=== PATIENT | male | born 1995 | race Caucasian/White ===

== ENCOUNTER 2016-11-12 16:40 | Inpatient (IN) | payer BC ==
--- NOTE | 2016-11-12 17:07 | EDPHY ---
H & P Smoking Status: Never smoked Time Seen by Provider: 11/12/16 16:48 HPI/ROS: CHIEF COMPLAINT: Depression HISTORY OF PRESENT ILLNESS: The patient is a 21-year-old male with a history of depression who presents emergency department with worsening symptoms. He states he has had worsening mood swings. He saw his psychiatrist Dr. Simon today. Dr. Simon called me prior to his arrival and stated that the patient was not on a hold but he wanted him evaluated. Patient initially stated he did not want to be evaluated. He told me to "fuck off" on numerous occasions. He subsequently told me that he was having worsening depression. He does have suicidal ideation. He did not state specific plan. He denies any ingestion or overdose today. He denies drugs or alcohol. REVIEW OF SYSTEMS: My complete review of systems is negative except as mentioned in the HPI. ( Anne Meier) Past Medical/Surgical History: Includes depression Past surgical history: Denies Social history: Denies (Anne Meier) Physical Exam: Vitals noted GENERAL: No acute distress, alert. HEENT: Eyes normal to inspection, normal pharynx, no signs of dehydration. NECK: No thyromegaly, no lymphadenopathy, supple. RESPIRATORY: Clear to auscultation bilaterally, no rales, rhonchi or wheezing. CVS: Regular rate and rhythm, no rubs, murmurs, or gallops. ABDOMEN: Soft, nontender, nondistended, no organomegaly. BACK: Normal to inspection, no CVA tenderness. SKIN: Normal color, no rash, warm, dry. No pallor. EXTREMITIES: No pedal edema, no calf tenderness, no Homans sign or cords, no joint swelling. NEURO/PSYCH: Alert and oriented x3, intermittently tearful, slightly angry normal motor sensory exam. No obvious cranial nerve deficit. (Anne Meier ) Constitutional: Initial Vital Signs Heart Rate 70 11/12/16 16:43 Respiratory Rate 16 11/12/16 16:43 Blood Pressure 120/49 L 11/12/16 16:43 O2 Sat (%) 97 11/12/16 16:43 O2 Delivery Mode Room Air Allergies/Adverse Reactions: No Known Allergies Allergy (Verified 11/12/16 16:43) Home Medications: Medication Instructions Recorded Latuda 11/13/16 buPROPion XL [Wellbutrin 150mg XL] 300 11/13/16 Medical Decision Making ED Course/Re-evaluation: In the emergency department I discussed the plan with the patient. I informed him that he was being placed on a hold the need to be evaluated by Psychiatric Services. The patient agreed. I subsequently contacted Dr. Simon on phone at [phone]. He agreed with the plan for placing the patient on a hold. Patient consented to laboratory studies. M1 Hold completed. Reviewed the patient's laboratory studies. His CBC and chemistry unremarkable. His aspirin and Tylenol were negative. His tox screen revealed positive THC and benzodiazepine. I discussed the case with Psychiatric Services. They recommend the patient be placed. The patient is aware the plan. Pt stable during stay. 2300: Pt signed out at change of shift to Dr. Ramirez (Anne Meier) 2300 care assumed by me from Dr. Meier pending placement. Patient has been accepted to [address] [place] [address] Roca. I have completed the EMTALA. (Nikko Ramirez) Differential Diagnosis: My differential includes but is not limited to depression, bipolar disorder, suicidal ideation, thyroid disease, drug abuse (Anne Meier) - Data Points Laboratory Results: Laboratory Results 11/12/16 17:34 11/12/16 17:34 Medications Given: Lurasidone HCl (Latuda) 40 mg PO DAILY@0800 GRIS Stop: 05/12/17 07:59 Last Admin: 11/12/16 23:03 Dose: 40 mg Discontinued Medications Lorazepam (Ativan) 2 mg PO EDNOW ONE Stop: 11/12/16 23:57 Last Admin: 11/13/16 00:34 Dose: 2 mg Departure - Departure Disposition: [facility] IP Clinical Impression: Depression Qualifiers: Depression Type: major depressive disorder Major depression recurrence: recurrent Active/Remission status: currently active Major depression episode severity: unspecified Qualified Code(s): F33.9 - Major depressive disorder, recurrent, unspecified Condition: Good
[2016-11-12 17:45] LABS: % IMMATURE GRANULYOCYTES 0.5 % (0.0-1.1); ABSOLUTE IMMATURE GRANULOCYTES 0.04 10^3/uL (0.00-0.10); ADD DIFF? NO; ADD MORPH? NO; ADD SCAN? NO; ATYPICAL LYMPHOCYTE FLAG 0 (0-99); FRAGMENT RBC FLAG 0 (0-99); HEMATOCRIT 47.7 % (40.0-51.0); HEMOGLOBIN 16.8 g/dL (13.7-17.5); LEFT SHIFT FLG 0 (0-99); LIPEMIA HEMOLYSIS FLAG 90 (0-99); MEAN CELL HEMOGLOBIN 31.4 pg (27.9-34.1); MEAN CELL HEMOGLOBIN CONCENTR. 35.2 g/dL (32.4-36.7); MEAN CELL VOLUME 89.2 fL (81.5-99.8); MEAN PLATELET VOLUME 10.3 fL (8.7-11.7); PLATELET CLUMPS FLAG 0 (0-99); PLATELET COUNT 283 10^3/uL (150-400); RED BLOOD CELL COUNT 5.35 10^6/uL (4.40-6.38); RED CELL DISTRIBUTION WIDTH 11.9 % (11.5-15.2)
[2016-11-12 18:14] LABS: ANION GAP 13 mEq/L (8-16); CARBON DIOXIDE 25 mEq/l (22-31); CHLORIDE 102 mEq/L (97-110); ETHANOL SERUM < 10 mg/dL (0-10); GLOMERULAR FILTRATION RATE > 60; GLUCOSE 83 mg/dL (70-100); POTASSIUM 4.1 mEq/L (3.5-5.2); SALICYLATE < 1.0 mg/dL (2.0-20.0); SODIUM 140 mEq/L (134-144)
[2016-11-12] MEDS: LURASIDONE HCL 20 MG TAB PO SCH (23:03)
[2016-11-13] MEDS: LORazepam 1 MG TAB PO ONE ×2 (00:19→00:34)
[2016-11-13 01:21] VITALS: BP 106/58; PULSE 79; RESP 16; TEMP 97.6; O2SAT 96
[2016-11-13] MEDS ORDERED: MAGNESIUM HYDROXIDE 30 ML UDCUP PO PRN (01:54)
[2016-11-13] MEDS ORDERED: NICOTINE POLACRILEX 2 MG GUM B PRN (01:54)
[2016-11-13] MEDS ORDERED: MAG HYDROX/AL HYDROX/SIMETH 30 ML UDCUP PO PRN (01:54)
[2016-11-13] MEDS ORDERED: ACETAMINOPHEN 325 MG TAB PO PRN (01:54)
[2016-11-13] MEDS ORDERED: OLANZapine 5 MG TAB PO PRN (01:55)
--- NOTE | 2016-11-13 14:30 | BCON ---
[f rep st] BEHAVIORAL HEALTH CONSULTATION INTERNAL MEDICINE CONSULTATION DATE OF CONSULTATION: 11/13/2016 REFERRING PHYSICIAN: Mary Roca MD REASON FOR REFERRAL: Medical clearance for inpatient behavioral health stay. HISTORY OF PRESENT ILLNESS: The patient came to the emergency department with worsening depression and suicidality. He was placed on an M1 hold, evaluated by the mental health team, and admitted for further psychiatric care. He currently is without any acute complaints. PAST MEDICAL HISTORY: 1. Depression and bipolar disorder. 2. Right knee injury from a skiing accident. PAST SURGICAL HISTORY: He denies history of any surgeries. MEDICATIONS: Most recently: 1. Lurasidone 40 mg p.o. daily. 2. Bupropion 300 mg p.o. daily. ALLERGIES: No known drug allergies. SOCIAL HISTORY: He lives with roommates in [facility]. He has worked as a ski patrol. He is a tobacco smoker. He has frequent alcohol use and frequent binges. He smokes marijuana. FAMILY HISTORY: A history of depression on his father's side. REVIEW OF SYSTEMS: He has no pain currently from his knee injury. He reports he is due for an MRI scan soon, and he has an outside doctor guiding the evaluation and management. Otherwise, he denies pain, cough, dyspnea, weight change, fevers, chills, palpitations, nausea, vomiting, constipation, diarrhea, dysuria or urinary frequency, skin rash, skin breakdown, joint pain, and joint swelling. Otherwise, 10-point review of systems is negative. PHYSICAL EXAMINATION: VITAL SIGNS: Blood pressure is 106/58, heart rate is 79 , respiratory rate is 16, oxygen saturation is 96% on room air, temperature is 36.4 degrees centigrade. His weight is 79.4 kg for a body mass index of 22.5. GENERAL: This is a well-nourished, well-developed man who appears his chronologic age, cooperative, and in no acute distress. HEENT: Extraocular movements are intact. Pupils are equal, round, and reactive to light. Mucous membranes are moist. Dentition is in good condition. NECK: Supple. HEART: Regular rate and rhythm with no murmurs, rubs, or gallops. LUNGS: Clear to auscultation bilaterally. ABDOMEN: Soft, nontender, and nondistended with normoactive bowel sounds. EXTREMITIES: No cyanosis, clubbing, or edema. NEUROLOGIC: Alert and oriented x3. Somewhat guarded and angry in his affect. Cranial nerves 2 through 12 are grossly intact. There is no focal weakness. Sensation is intact to light touch, and gait is within normal limits. LABORATORY STUDIES: Drawn in the emergency department: Hematology overall within normal limits. He had a slight relative decrement of eosinophils at 0.5 % of no clinical significance. Serum chemistry was completely within normal limits. Toxicology screen in the serum was negative for salicylates, acetaminophen, and ethyl alcohol, and the urine was non-negative for benzodiazepines and marijuana. ASSESSMENT AND RECOMMENDATIONS: 1. Mental health issues, pending further evaluation and management per Psychiatry and the mental health team. 2. Tobacco-dependence syndrome. He was advised to quit smoking. 3. Polysubstance abuse with alcohol-use disorder, marijuana-use disorder, and apparently benzodiazepine use without a prescription. He may benefit from specific substance abuse counseling. It may be worthwhile to observe for any signs or symptoms of alcohol or benzodiazepine withdrawal, though at present he is showing no such signs. I see no medical contraindications to this patient's continued stay on the inpatient behavioral health unit or to any psychiatric medications or procedures. Thank you very much for including me in the care of this patient, and please do not hesitate to contact me or the hospitalists service should there be need for further medical evaluation. /[id number]/MODL MTDD
[2016-11-13] MEDS: buPROPion XL 150 MG TAB PO SCH (15:22)
[2016-11-13] MEDS: LURASIDONE HCL 20 MG TAB PO SCH (17:38)
--- NOTE | 2016-11-13 18:12 | BAPA ---
[f rep st] ADMISSION PSYCHIATRIC ASSESSMENT DATE OF SERVICE: 11/13/2016 CHIEF COMPLAINT: "I am looking for relief from mood swings, anger and depression. Someone needs to tell me if this is the way it is always going to be. You've got to figure it out. I'm not here to work on it anymore." HISTORY OF PRESENT ILLNESS: This is a 21-year-old single man who presented to the ED seek ing treatment due to suicidal thoughts, rapid mood swings, and general irritability. The patient archer d been seen by his psychiatrist, Dr. Sorenson, on 11/12/2016 in the morning, who was in the process of setting the patient up with an appointment for IV ketamine infusion. The patient states that af ter leaving Dr. Sorenson's office, he went to his sister's house. She went to work at 2 p.m. on e day prior to admission. He decided to book a flight to [place]. He said that he was able to get his mother's credit card number and charged an approximately 2000 [address] plane ticket on her card. Lat er that day the patient drove to [place] to apple picker his guitar, which was being repaired. He said th at he started feeling guilty about what he had done. He said his mood changed and he had thoughts a bout driving his car into a tree. He felt that he was "at the end of my rope." He said, "If things don't get better for me, I'm going to kill myself." He said he has been having these rapid mood cy cles for the past 3 weeks, and told the [facility] forestry patrolman, "I've never felt so bad." The patient states that he called Dr. Sorenson and told him that he was on his way to the hospital. The [facility] evaluato r spoke with Dr. Sorenson, who agreed that the patient needed to be admitted to the hospital. He s aid that when he saw the patient earlier that day, he did not feel like the patient needed to be on a mental health hold and he was not concerned about his safety, but says that based upon what the juvenal fenton has reported, having thoughts about driving his car into a tree, Dr. Sorenson was worried abo ut him. The patient has no prior history of suicide attempts. Other than the thought about driving into the tree, he denied any intent or plan to act on those thoughts yesterday, but just felt that he needed to get some help and that he wanted to "figure things out." When this psychiatrist met wi th the patient on the behavioral health inpatient unit on , the patient was extremely irritab le, angry, hostile, frustrated, uncooperative. He told the MD to "fuck off," but continued to answ er some of the MD's questions. He said, "I can't take it anymore. I have done all the things that you guys have asked me to do. I have taken all the recommendations of my doctors. I found work. I have been getting exercise. I am more socially engaged. I follow up with my treatment. I take my medications, but I'm still not getting better." The patient states, "Someone needs to tell me if t his is the way it's always going to be, because I don't like it this way." The patient was very neg ative about his treatment. He said, "I've taken all the fucking psychiatric medications there are." When MD asked the patient if he felt that there were any periods of time since he started taking p sychiatric medications that he thought that they were helpful, he said, "No, not really." The patie nt was angry about his treatment. He said that his mother made him go to a residential treatment [facility] for his lena and senior year of high school. He says, "I feel like you are all just puppet doctors, and my mom is pulling the strings, and you are keeping information from me." The patient s aid that he is not willing to work on his treatment anymore because he has done everything that he f eels he needs to do. He says, "It's up to you guys. It's your job to figure out what's wrong and m jef me better." The patient states that there are lots of good things going on in his life, but he is not able to appreciate any of them. He says that he [place] 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 He says he likes his roommates, but he says that nothing in his life brings him any jorge l or satisfactio n. Mostly he says that he feels like he is frequently "irritable, angry, mad about everything." Th e patient says that things have been getting worse over the last 3-4 weeks. He says that he got ang ry and smashed his phone. He lost his job 2 days ago because he did not show up to work for 2 days. He says that he has had decreased interest in cooking and other activities that he used to previou sly enjoy. The patient said that he wanted his treating psychiatrist on the unit to contact his out patient psychiatrist, Dr. Sorenson, and "figure things out." The patient said that he also wanted the psychiatrist to talk to his mother, but he did not want to be present for the conversation lola selby, "She pisses me off." PAST PSYCHIATRIC HISTORY: The patient is currently being seen by Dr. Usman Sorenson, , who has been prescribing medications for him. But since the patient lives in [place], and Dr. Vijaya lam's office is here in [place], the patient does not see him all that often. He said sometimes nasra vázquez have phone appointments and sometimes the patient will drive into [place] to stay with his sister and he will have an appointment with Dr. Sorenson. The patient has not done therapy, he says, in over 2 years. He says he feels like it has not been helpful, but his mother says that he was actual ly very close to his therapist at the [facility] treatment facility that he stayed at in [place] for his senior year of high school. Lg Tee was his therapist, and according to the patient 's mother they had very good rapport and she thought that they did a lot of "good work together." T he patient was hospitalized for the first time at the age of 10 or 11 at [facility] in [place] due to depression and suicidal ideation. This MD and day care provider, Edi, spoke wit h the patient's mother, Camille, for an extensive conversation. She described the patient's previous psychiatric history. She said that when he was an adolescent, he was diagnosed with generalized anx iety disorder and major depressive disorder. She said many of his mood-related problems stemmed fro m the fact that he struggled in school and had difficulty making and maintaining social relationship s. She said that he had been diagnosed with dyslexia and was on an intervention plan and was gettin g special assistance. She said that he had always had "slow processing speed." She said that he archer s "a very high IQ," but that he has very "slow processing." She said that he was never diagnosed as ADHD, but was frequently reported to have symptoms of distractibility, hyperactivity, and that he l ost focus and had difficulty completing tasks. She said that his struggle in the classroom was a pr imary trigger for his emotional lability and for his mood swings, that he never felt like he was "go od enough" and he always felt like he was "different than other kids." She said that it made him fe el like he was not "normal," and she thinks this is one of the things that led him to have high leve ls of anxiety and bouts of depression as an adolescent. She says that he was seeing a psychiatrist in [place] after he was discharged from [facility], and that he was getting treatment there , but that he was was still "struggling" in school and his social life, and had frequent outbursts a nd disruptive behaviors. She said that upon the recommendation of his outpatient providers at the [facility], she sent him to a [facility] program in [place], which lasted for 3 months. She said that after citlalli agustin completed his treatment at the [facility], that she was able to enroll him in a program va homer [facility], which is a residential treatment facility in [place] that also has a school program and micah ats mood, anxiety, and substance abuse disorders, as well as adolescents with behavioral problems, s pecifically for adolescent males. She said that the patient did not want to go, and that he did not like being there, and that he had threatened that as soon as he turned 17 that he would leave the [facility], but she said "somehow it was a miracle" that he agreed to stay and complete his education an d received his high school diploma from that program. She said after that program is when the patie robbin moved to [place] and that he has basically been struggling ever since he got to [place], even t kyleigh there have been periods of time where she felt like he was doing very well, was able to get jane bs, maintain employment, but that he would always lose his jobs, and he would always have periods of time when he seemed to struggle, was more prone to having depressive spells. He was very frequentl y, according to the mom, quite irritable, angry, hostile. He would blame family members, and he wou ld blame providers, and he would blame friends for problems that he was having. Mother acknowledges that the patient has always had difficulty accepting responsibility and that he also has difficulty with follow-through. She said he did much better when he was in a structured environment and when he was getting regular therapy, even though he was sent there against his will. She said that he ma de a lot of improvements and seemed to develop more mature, adult coping skills. She says that it w as largely due to the therapy that he was getting from Lg Tee and the effort that the staff at [facility] was making to help Will cope better with his mood swings and his emotional outbursts. She felt like he did make progress. Mother says that she visited [facility] about 3 weeks ago, and that while she was staying with him that Will admitted that he was feeling more depressed, more hopeless, desp ondent because he did not feel like things were working out in his life. He did not have a girlfrie nd, and he was having relationship difficulties, was not getting along with his roommates, and that he was not really enjoying his work, and that he felt like there was a lot of stress and pressure. She had suggested that he get back into therapy. Mom reports that she specifically said, "What are you doing? You need to be using the skills that Lg taught you and that you learned at [facility]." She says the patient said, "Yeah, Mom, I know, but I'm a little kameron. I haven't really been practi cing or using those skills." The mother thinks this is at least one of the contributors to the reas on why he struggles more since he has come to [place], and why he has had more frequent mood swings , and had more bouts of depression. When Mother suggested that the patient find providers closer to where he is living, the patient was open to that. She said that he even went on line and looked up possible therapists through [facility], but he never followed through and made those appointments like he said he would. Mother denies that the patient has any prior history of self harm, and, according to Mom, she is not aware that he had ever made any suicide attempts. The patient has also denied ever making a suicide attempt. Both Mother and patient describe the patient as having a "temper" and that frequently when he gets angry he has a tendency to throw things and b reak things. ALLERGIES: The patient reports having no known drug allergies. CURRENT MEDICATIONS: The patient is taking Latuda 40 mg daily and Wellbutrin XL 300 mg p.o. daily. The patient states that he had stopped taking the Latuda about 2-3 months ago because he felt like it was making him "tired." He says that he recently resumed taking it about 2 weeks ago. He called Dr. Sorenson, and Dr. Sorenson told him he should go back on the Latuda, and the patient was will ing to do that. PAST MEDICAL HISTORY: Noncontributory. The patient denies any chronic medical problems and has no surgical history. SOCIAL HISTORY: The patient lives with 3 roommates in [place], [place]. During the winter season citlalli agustin works on the [employer]. 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 He says that he has some friends, but that he feels pret ty isolated living in [facility]. He is single, not currently in a relationship. The patient gr ew up in [place]. His father is Irish. His mother is [place]. Parents when he was about 2 years old. He has a sister who is 1 year older than he is, who lives in [place]. The family mov ed to [place] after the parents . The patient went to school there. Mother still lives in a suburb north of [place]. During high school the patient was sent to an [facility] [employer] [facility] for 3 months and then was admitted into a residential treatment facility called [facility], where he got his high school diploma. He has not done any education after high school. The patient states he w as raised Samar[place], but does not practice any taoism. He enjoys fishing, hiking, cooking, and "driv ing down long, quiet roads." The patient identifies his sister as his main social support. He says that he and his mom have a contentious relationship. He says that a lot of the times when he talks to her, she "just pisses me off." SUBSTANCE USE HISTORY: The patient states that his first drink was at the age of [age] years old, but he says that was "part of his culture growing up in [place]." The patient says that he smokes mariju adriana 4-5 times a week. He says that in the past he has used cocaine, ecstasy, and LSD on multiple oc casions, but is unable to say when his most recent use was. The patient says he drinks 4-5 times a week. He says he will have 1-2 beers per occasion, but he also says that at least once a week he wi ll have more than 4 drinks of alcohol. He does not think that drinking is a problem for him. He al so does not think that marijuana is a problem for him. He is aware that both chemicals have potenti al for adverse effects on people with mood disorders as well as impairing cognition and judgment, bu t he does not think that his use of marijuana or alcohol are problems for him at this time. FAMILY HISTORY: Both the patient and Mother state that Father has a family history of depression, b ut they deny any other family members with a history of mental illness or substance abuse problems. LABORATORY DATA: The patient's labs on admission: White cell count is 7.82, hemoglobin is 16.8, he matocrit is 47.7, platelet count is 283. Sodium is 140, potassium 4.1, chloride 102, BUN is 11, cre atinine is 1.0, glucose is 83, calcium is 10. His urine tox screen was positive for benzodiazepines as well as marijuana. The benzo was most likely due to the 2 mg dose of benzo that he got in the [facility]. His salicylate and acetaminophen levels were both undetectable. All other drugs of abuse were n egative. His blood alcohol level was less than 10. MENTAL STATUS EXAMINATION: This is a well-developed, appropriately-groomed young man dressed in a b utton-down oxford shirt and wearing scrub bottoms. He appears very well kempt and well groomed. He interacts. He is hostile and irritable towards the interviewer, somewhat guarded and oppositional. He tells the interviewer at one point to "fuck off." He also seems to harbor resentment toward [facility] mental health professionals who have helped him in the past, because he does not think that what t fabiano have done has been "good enough" because he says, "I'm still looking for relief. The patient's affect is irritable, labile. He says his mood is "angry." His thought process is linear and goal d irected. His thought content reveals no evidence of psychosis. There are no signs or symptoms of m stephanie. He has no pressured speech, no racing thoughts, no grandiose delusions, no increase in goal-d irected activity, no decreased need for sleep, no elevated or elated mood. He is alert and oriented x4. He also denies any SI/HI. He no longer is endorsing thoughts of suicide. He states that he i s no longer having thoughts, plans, or intents to harm himself or harm anyone else. He says that he is angry and upset, but he does not feel hopeless or helpless. His intellect appears to be average based upon his education level, fund of knowledge and vocabulary. His insight and judgment both se em to be poor. DIAGNOSES: 1. Major depressive disorder, recurrent, severe. 2. Substance-induced mood disorder. 3. Cannabis use disorder, severe. 4. Alcohol use disorder, severe. 5. Learning disability. 6. Psychosocial stressors include social isolation, recent loss of job, conflict with his mother. The patient has some lack of emotional maturity, difficulty dealing with social relationships, and a ccording to the mother the patient has some self esteem issues based upon his educational struggles with his education and with his academic attainment level. She feels like he is not living up to hi s potential, and it is likely that the patient has internalized many of these feelings. PLAN: 1. Admit the patient to the inpatient behavioral health services unit on [address] on an M1 hold. 2. Monitor closely for safety and put him on suicide precautions. 3. We will resume the patient's regular regimen of outpatient medications, including Latuda. The p atient agrees to take it at dinnertime rather than at h.s. He also wants to continue on his Wellbut rin, even though we have had some discussion that Wellbutrin can increase irritability and can induc e symptoms of orlando for patients who have bipolar spectrum disorder. The patient says he understand s this. 4. and patient case manager, Edi, had a long conversation with Mother on the phone. Some of that c meek information is related in this initial assessment. Mother states that her goal for the pa eliceo is that he get a comprehensive psychiatric evaluation and that he find a therapist and get va k into individual and group therapies, because she felt like that was beneficial for him when he was in residential treatment. She would like him to get a new psychiatrist who is closer to where he l mc, so that he can see that psychiatrist in person on a more regular basis. She has suggested [facility], which she and the patient have looked into because they have a local outpatient clinic in [facility]. 5. Patient will engage in individual, group, and milieu therapies while he is here. 6. Estimated length of stay is 3-5 days. The patient is looking to discharge when his hold expires on November 15. 7. MD spoke briefly with Dr. Usman Sorenson, the patient's outpatient psychiatrist, who feels like the patient is having a "mixed episode" due to his irritability and how confused the patient was ye sterday when Dr. Sorenson spoke to him on the phone. The patient does admit to being intoxicated a t that time, he had been smoking pot and was high. Dr. Sorenson is also still wanting to set the p atient up with IV ketamine infusions and would like to discuss possibly not having the patient on an antidepressant medication. We will continue to collect collateral information, assess the patient' s condition, and update his outpatient providers during his hospitalization. /[id number]/MODL
[2016-11-14] MEDS: LORazepam 0.5 MG TAB PO PRN ×2 (04:19→19:31)
[2016-11-14] MEDS: buPROPion XL 150 MG TAB PO SCH (08:39)
--- NOTE | 2016-11-14 13:06 | SOAPPROG ---
SOAP Progress Note Assessment/Plan: Assessment: 11/14/16 13:02 Plan: 1. Patient would like to continue on Latuda and Wellbutrin at current doses. He denies any thoughts, plan or intent to harm himself or other. There are no s/s of orlando or psychosis. 2. Patient would like to have follow up care at [facility] in [place], [place]. He agrees to see an individual therapist, possibly attend groups and see a prescriber that is closer to where he lives. 3. Patient does not think alcohol or marijuana are problems for him and so he does not want treatment for substance use disorders at this time. MD has strongly emphasized the harmful effects of alcohol and THC on mood, judgment, cognition, impulsivity and increased risk of reckless or harmful behavior. MD has also emphasized the effectiveness of behavior modification therapy as well as meds like naltrexone, vivitrol and antabuse. Patient has declined treatment at this time. Subjective: Met with patient and discussed with staff. Patient says he is "pissed off" about being in the hospital b/c "I'm fucking bored." He is irritable, hostile and uncooperative. He is willing to talk to MD briefly about plans for aftercare. MD mentions conversation with his [facility] yesterday and her comments that he was interested in treatment through [facility]. Patient says he would still like to see therapist and a prescriber closer to where he lives. He is wiling to sign releases and complete paperwork so CC can try to set him up with an intake appointment at [facility]. MD also discussed with patient conversation with Dr. Marcus. According to Dr. Marcus, patient does better when he was taking Latuda and Dr. Marcus is worried that abruptly discontinuing Latuda led to his recent decompensation. Patient says he actually stopped taking Latuda "several months" before he told Dr. Marcus, so he's actually been off that med for over 6 months per patient. He says that he's only felt "really bad" in the last month, so he doesn't think it's due to discontinuation of Latuda. MD suggested patient should see providers who can more closely monitor and observe him so that together he and his providers can track his mood and behaviors in order to have a better sense of when he's doing better and what conditions/treatment seem most effective. He agrees with this plan, which would be possible if he were seeing therapist, attending groups and seeing prescriber closer to where he lives. For now, patient agrees to continue on same meds with plan to observe, monitor, document and evaluate his progress after discharge and use that information to make better decisions about treatment options including any med changes. Patient denies any AH/VH, there is no evidence of manic or psychotic sxs. Patient denies any thoughts, plan or intent to hurt himself or anyone else. Objective: Vital Signs Temp Pulse Resp BP Pulse Ox 36.4 C 79 16 106/58 L 96 11/13/16 01:00 11/13/16 01:00 11/13/16 01:00 11/13/16 01:00 11/13/16 01:00 MSE: Well-groomed, wearing Sargent button-down shirt, scrub bottoms, holding his guitar. Affect: Angry, irritable, labile Mood: "Pissed off" TP: Linear, goal- directed TC: Denies any AH/VH, no paranoia, no delusions, no manic sxs, denies any SI/HI - Time Spent With Patient Time Spent With Patient: 20" - Pending Discharge Pending Discharge Within 24 Hours: Yes Pending Discharge Date: 11/15/16 (Patient needs f/u appts at [facility] and/ or with Dr. Marcus prior to d/c) Pending Discharge Time: 17:00 ICD10 Worksheet Patient Problems: Problems Problem Status Onset Alcohol use disorder, severe, dependence Acute Cannabis use disorder, severe, dependence Acute Depression Acute - ICD10 Problem Qualifiers (1) Alcohol use disorder, severe, dependence (2) Cannabis use disorder, severe, dependence
[2016-11-14] MEDS ORDERED: MELATONIN 3 MG TAB PO PRN (13:16)
[2016-11-14] MEDS: LURASIDONE HCL 20 MG TAB PO SCH (17:35)
[2016-11-15] MEDS: buPROPion XL 150 MG TAB PO SCH (09:03)
--- NOTE | 2016-11-15 17:46 | BDS ---
[f rep st] BEHAVIORAL HEALTH DISCHARGE SUMMARY REASON FOR ADMISSION: This is a 21-year-old, man, who presented to the ED seeking [facility] nt due to suicidal thoughts, rapid mood swings, and general irritability. Patient had been seen by his psychiatrist, Dr. Simon, on 11/12/2016 in the morning who was in the process of setting the p atient up with an appointment for IV and ketamine infusion. The patient states that after leaving Hernán Simon's office, he went to his sister's house. He decided to book a flight to [place]. He said he was able to get his mother's credit card and charged an approximately $2000 plane ticket on her c vicki. Later that day, the patient went to [place] and said he started feeling guilty about what he had done . He said his mood changed and he had thoughts of driving his car into a tree. He felt that he was "at the end of my rope". He said "if things don't get better for me I am going to kill myself." H e said he had been having these rapid mood cycles for the past 3 weeks and says "I have never felt s o bad." Patient states that he called Dr. Simon and told him he was on his way to the hospital. Patient went to the [facility] ED and was placed on a mental health hold and was admitted to the [facility] behavioral health unit. ADMITTING DIAGNOSES: Are as follows: 1. Major depressive disorder, recurrent, severe. 2. Substance induced mood disorder. 3. Cannabis use disorder, severe. 4. Alcohol use disorder, severe. 5. Learning disability. 6. Psychosocial stressors include recent loss of job, conflict with mother, social isolation. Dinah ent is emotionally immature, has trouble with social relationships. According to his mother he has s elf-esteem issues based upon his educational struggles and academic attainment level. She feels that he is not living up to his potential and she says that this affects the patient's self-esteem and f eelings about himself. ADMISSION PHYSICAL EXAMINATION: Was performed by Dr. Joe Zaragoza. Please see his H and P for d etails. ADMISSION LABS: Are as follows: White cell count was 7.82, hemoglobin was 16.8, hematocrit was 47. 7, platelet count was 283. Sodium was 140, potassium was 4.1, chloride was 102, BUN was 11, creatin ine was 1.0, glucose was 83, calcium was 10. His urine tox screen was positive for benzos as well a s marijuana. His salicylate and acetaminophen levels are both undetectable. All other drugs of abu se were negative. His blood alcohol level was less than 10. HOSPITAL COURSE: Patient was admitted to the inpatient behavioral services unit on on an M1 hold. He was continued on his outpatient regimen of Latuda 40 mg daily and Wellbutrin XL 300 mg da ace. The MD and case sealer had a long conversation with the patient's mother on the phone wit h the patient's permission. Mother states that her goal for the patient is that he get a comprehens cassandra psych evaluation and find a therapist and get back into individual and group therapy because she felt like that was beneficial for him when he was in a residential treatment program his senior yea r of high school. She would like him to get a new psychiatrist who is closer to where he lives so t hat he can see the psychiatrist in person on a more regular basis. She suggested [facility] which she and the patient have looked into because they have a local outpatient clinic in [place]. The MD spoke briefly with Dr. Usman Simon, the patient's outpatient psychiatrist, who feels like the patient is having a mixed episode due to his irritability and how confused the patient was yeste rday when Dr. Simon spoke to him on the phone. Dr. Simon says that the patient stopped taking Latuda several months ago and feels like this has been a contributor to his decompensation. Patien t only restarted on the Latuda at the suggestion of Dr. Simon about a week ago. Dr. Simon thi nks that during the time that he has seen the patient, that the combination of Latuda and Wellbutrin have been according to him "the best combination he has been on". On November 14, 2016, met with the patient who said that he is "pissed off" about being in the hosp ital because "I am fucking bored". He remains irritable, hostile and uncooperative. He is willing t o talk to the MD briefly about plans for aftercare. mentioned the conversation with his mother ye and the patient said that he agrees with the plan to follow up at [facility] which is [facility] where he lives and he agrees to see a therapist and a prescriber there. He is also willing to do group therapy if that seems like that would be a good option. He is open to having his intake ev aluation soon after discharge so that he can find out what services would be available and start see ing providers as soon as possible. Patient says that he does not want to make any changes to his me dications. He agrees to stay on the Latuda and the Wellbutrin until he can see a provider through [facility] and will talk with that provider about any possible changes to his medication regimen. Patient says that he is no longer feeling suicidal. He is not having any thoughts, plans or intents to hurt himself or hurt anybody else. He does not want to . He is feeling optimistic and futur e oriented. He wants to get into treatment and he wants to be back in therapy. He feels that the p cristinram that he did at [facility], the residential treatment program in [place] where he spent his senior yea r of high school, was beneficial and that he agrees that having more structure and regular contact w [facility] mental health providers is more likely to help keep him stable and to reduce the likelihood of h im having recurrence of suicidal thoughts. Patient showed no signs or symptoms of [place] during this hospitalization. There was no evidence of any psychotic symptoms and patient denied any AH, VH, paranoia or delusions. CONDITION ON DISCHARGE: Patient was stable. He was euthymic. He had been irritable and angry duri ng most of his hospitalizations but his day of discharge, patient had a brighter affect, was more pl easant and interacted with the staff more appropriately. DISCHARGE MEDICATIONS: Patient was given a script for Latuda 40 mg p.o. daily enough to last him un til he saw his providers at [facility]. He also has medications at his home in [place] so he was o nly given 1 week supply of medications. In addition, to Latuda, he was also given a prescription fo r Wellbutrin 150 mg XL, take 2 tabs daily and he was given melatonin 3 mg tabs take 2 tabs p.o. at b edtime p.r.n. for sleep. DISCHARGE DIAGNOSES: Are as follows: 1. Major depressive disorder, recurrent, severe. 2. Substance induced mood disorder. 3. Cannabis use disorder, severe. 4. Alcohol use disorder, severe. 5. Learning disability. 6. Psychosocial stressors include recent loss of job, social isolation, feeling like his mental hea lth treatment has not been effective and also feeling like he is not living up to his potential and low self esteem, according to the mom. DISPOSITION: Patient left the hospital with his sister. He was going to stay with his sister in [facility] through the weekend, return to [place] in time for his intake appointment with [facility] on Friday morning. Followup appointment is Friday11/18/2016 at 8 a.m. at [facility] [place] LEGAL COURSE: The patient was converted to a voluntary status prior to discharge. /[id number]/MODL
== END 2016-11-15 13:26 | disposition home or self-care (01) | DRG 885 ==
LOC: BBEH 11-13 00:45
PROVIDERS: ADMIT Psychiatry & Neurology Behavioral Neurology & Neuropsychiatry; ATTEND Specialist
DX: F33.2 Major depressive disorder, recurrent severe without psychotic features (principal); F17.210 Nicotine dependence, cigarettes, uncomplicated; F10.24 Alcohol dependence with alcohol-induced mood disorder; F12.288 Cannabis dependence with other cannabis-induced disorder; F13.10 Sedative, hypnotic or anxiolytic abuse, uncomplicated; F81.89 Other developmental disorders of scholastic skills; Z56.0 Unemployment, unspecified; Z60.4 Social exclusion and rejection; R45.81 Low self-esteem
CPT/HCPCS: 80305; G0480